=== PATIENT | male | born 1960 | race Caucasian/White ===

== ENCOUNTER → 2021-07-27 08:44 | Outpatient (BNVA) | payer OTHER, SELFPAY | PROVIDERS: PCP Nurse Practitioner Family; Referring Provider Nurse Practitioner Family; Visit Provider Surgery | DX: Z13.89 Encounter for screening for other disorder (principal) ==

== ENCOUNTER 2021-07-31 11:08 | Outpatient (REF) | payer OTHER, SELFPAY ==
[2021-07-31 14:02] LABS: Hematocrit 46.3 % (42.0-52.0); Hemoglobin 15.1 g/dl (14.0-18.0); Mean Corpuscular HGB Conc 32.6 g/dl (31.0-36.0); Mean Corpuscular Hemoglobin 31.1 pg (27.0-33.0); Mean Corpuscular Volume 95.5 fL (80.0-98.0); Mean Platelet Volume 9.3 fL (9.4-12.4); Platelet Count 153 X10*3/uL (160-400); Red Blood Count 4.85 X10*6/uL (4.60-5.80); Red Cell Distribution Width 13.3 % (11.0-16.0); White Blood Count 4.9 X10*3/uL (4.8-10.8)
[2021-07-31 14:08] LABS: INTERNATIONAL NORM RATIO 1.1 (0.9-1.1); Prothrombin Time 12.5 SEC (9.9-13.0)
[2021-07-31 14:11] LABS: Alanine Aminotransferase 17 U/L (0-40); Albumin Level 4.2 g/dL (3.5-5.0); Alkaline Phosphatase 55 U/L (39-117); Anion Gap 12 (12-20); Aspartate Amino Transferase 15 U/L (5-37); Bilirubin Total 1.5 mg/dL (0.0-1.0); Blood Urea Nitrogen 16 mg/dL (9-16); Calcium 9.7 mg/dL (8.4-10.2); Carbon Dioxide 26 mmol/L (22-29); Chloride 106 mmol/L (96-108); Cholesterol 246 mg/dL; Estimated Glomerular Filt Rate > 60; Glucose Fasting 95 mg/dL (60-99); HDL Cholesterol 48 mg/dL; LDL Cholesterol Calculated 179 mg/dl; Partial Thromboplastin Time 33.2 SEC (24.1-38.0); Potassium 4.2 mmol/L (3.3-5.1); Sodium 140 mmol/L (135-145); Total Protein 7.1 g/dL (6.5-8.0); Triglycerides 96 mg/dL
[2021-07-31 14:31] LABS: Prostate Specific Antigen Scr 0.69 ng/mL (<0.05-4.0)
== END 2021-07-31 11:09 | disposition home or self-care (01) ==
LOC: HO.HMGCLDS 11:08
PROVIDERS: PCP Nurse Practitioner Family; Visit Provider Nurse Practitioner Family
DX: Z01.818 Encounter for other preprocedural examination (principal); K40.90 Unilateral inguinal hernia, without obstruction or gangrene, not specified as recurrent; E78.00 Pure hypercholesterolemia, unspecified; Z76.89 Persons encountering health services in other specified circumstances; Z12.5 Encounter for screening for malignant neoplasm of prostate
CPT/HCPCS: 36415; 80053; 80061; 84153; 85027; 85610; 85730

== ENCOUNTER 2021-08-02 08:31 | Day surgery (SDC) | payer OTHER, SELFPAY ==
--- NOTE | 2021-08-01 09:50 | HO.ANESPROP2 ---
Documented by User: Bianca Matias NP 08/01/21 09:54 HPI - Anesthesia Eval Consult details Narrative: 61yo M for Hernia Repair Inguinal Laparoscopic with mesh, Hernia Repair Umbilical Laparoscopic PCP cleared pending labs (done and WNL) and EKG (pending) PMFSH Active Problems Active Problems: All Active Problems (Updated 07/20/21 @ 13:35 by NAHEED Platt-C) Umbilical hernia (Acute) Pre-operative clearance (Acute) Left inguinal hernia (Acute) Encounter to establish care (Acute) Surgical History Surgical History No pertinent past surgical history Social History Social History Housing: House Alcohol intake: never Patient Tobacco Use Status: Never used Tobacco e-Cigarette/Vaping Use: Never Used Second Hand Smoke Exposure: No Use of substances other than those prescribed or required for medical reasons: No Are you DNR?: No Advance Directives: No Advance Directives Information Provided: Yes Advance Directives on File: No service: No Current occupational status: employed Current occupation: self employed Cognitive needs: No Hearing needs: No Vision needs: Yes (Glasses) Meds Allergies Allergy/AdvReac Type Severity Reaction Status Date / Time No Known Allergies Allergy Verified 07/27/21 09:02 Home Medications Medication Instructions Recorded Confirmed Last Taken Type No Known Home Meds 07/20/21 07/27/21 Unknown History Exam Exam Date and Time: August 01, 2021 0950 Pertinent Lab Results Pertinent Lab Results: Laboratory Tests 07/31/21 07/31/21 11:15 11:15 WBC 4.9 Hgb 15.1 Hct 46.3 Plt Count 153 L Sodium 140 Potassium 4.2 Chloride 106 Carbon Dioxide 26 BUN 16 Creatinine 1.16 Assessment and Plan Assessment Anesthesia Assessment: Chart Reviewed Documented by User: Lata Power MD 08/02/21 09:29 PMFSH Past Medical History Functional capacity: independent ambulation Family History Family history of problems with anesthesia: No Surgical History Surgical History No pertinent past surgical history History of Problems with Anesthesia: No Social History Social History Housing: House Alcohol intake: never Patient Tobacco Use Status: Never used Tobacco e-Cigarette/Vaping Use: Never Used Second Hand Smoke Exposure: No Use of substances other than those prescribed or required for medical reasons: No Are you DNR?: No Advance Directives: No Advance Directives Information Provided: Yes Advance Directives on File: No service: No Current occupational status: employed Current occupation: self employed Cognitive needs: No Hearing needs: No Vision needs: Yes (Glasses) Meds Allergies Allergy/AdvReac Type Severity Reaction Status Date / Time No Known Allergies Allergy Verified 07/27/21 09:02 Home Medications Medication Instructions Recorded Confirmed Last Taken Type No Known Home Meds 07/20/21 07/27/21 Unknown History Exam Airway Mallampati Class: II TM Dist: >3cm Neck ROM: Full Heart: RRR Lungs: CTA Assessment and Plan Assessment Anesthesia Assessment: Anesthesia Plan Discussed Final Anesthetic Review Family History of Problems with Anesthesia: No History of Problems with Anesthesia: No ASA Class: II Final Preanesthetic Review: No Changes in Pt Med Stat, Meds/Allgs Chart Reviewed, Consent Obtained/Reviewed and Anes Risks/Benef Reviewed Patient Risk: Low Procedure Risk: Low Anesthetic Plan Anesthetic Plan: GA Disposition: Standard PACU
[2021-08-02] VITALS (11 sets, daily range): BP systolic 110–139; BP diastolic 55–82; PULSE 63–87; RESP 16–18; TEMP 36.1–36.6; O2SAT 96–100; BMI 26.6
--- NOTE | 2021-08-02 | ECG_ITS ---
Test Reason : pre op Blood Pressure : / mmHG Vent. Rate : 060 BPM Atrial Rate : 060 BPM P-R Int : 182 ms QRS Dur : 082 ms QT Int : 388 ms P-R-T Axes : 014 -15 -03 degrees QTc Int : 388 ms Normal sinus rhythm Normal ECG When compared with ECG of 20-SEP-2011 04:51, No significant change was found Referred By: Bianac Matias Electronically Signed By:POONAM TEMPLETON MD
[2021-08-02] MEDS: Lactated Ringers 1,000 ML 100 ML IVCONT (09:30)
--- NOTE | 2021-08-02 10:31 | MHC.SHP ---
Pre-Procedural Eval Section A Date of Service: 08/02/21 The patient is an INPATIENT: No Changes since office visit: Yes Patient answered all questions; No Cold of Flu in the past 2 weeks, No New Medical Problems and No Changes in Medication The History & Physical has been completed within 30 days and I have reviewed it.: Yes Section B Chief Complaint: umbilical and inguinal hernia w/o obstruction Allergies: Allergies Allergy/AdvReac Type Severity Reaction Status Date / Time No Known Allergies Allergy Verified 07/27/21 09:02 Plan Diagnosis/Plan: Unchanged I have reviewed the history and physical and performed a pertinent physical examination on my patient. No changes have occurred unless specified.
--- NOTE | 2021-08-02 12:30 | W.PM.OPN ---
Operative Note Operative Note Date of Service: 08/02/21 Narrative: Preoperative diagnosis: left inguinal hernia, umbilical hernia Postoperative diagnosis: same Procedure: laparoscopic repair of left inguinal hernia with mesh, umbilical hernia repair Surgeon: Rob Oliva MD Wood Boatbuilder Apprentice: Huong Gonsalez PA-C Anesthesia: general endotracheal Indications for procedure: 61-year-old male presenting with a palpable mass in the left groin and umbilicus which increases with lifting and straining. On examination patient has a reducible left inguinal hernia and small umbilical hernia. Patient presents today for laparoscopic repair of a left inguinal hernia and repair of the umbilical hernia. Operative findings: Indirect left inguinal hernia, small umbilical hernia Specimen: none Estimated blood loss: 2 mL Complications: none Procedure details: patient was brought to the OR and placed in a supine position. After administering general anesthesia patient's abdomen was prepped with ChloraPrep and draped in a sterile fashion. A surgical time-out was called and the consent confirmed. Patient received preoperative antibiotics and Venodyne boots were in place. Local anesthesia consisting of Sensorcaine 0.5% was infiltrated to the left of the umbilicus carried out through subcutaneous tissue up to the external oblique aponeurosis. This was then incised with a scalpel. A retro rectus muscle section was then performed using S retractors. The dilating balloon was then inserted below the rectus muscle into the preperitoneal space just above the pubic tubercle. This was then inflated with 15 pumps and held in place for 30 seconds. The dilating balloon was then removed and the structural balloon placed. The add preperitoneal space was then insufflated to a pressure of 15 mmHg with CO2. The patient was placed in a Trendelenburg position rotated to the left. Blunt dissection was then used to define the pubic tubercle medially annual laterally towards the direct space and then laterally blunt dissection was used to define the lateral space. Peritoneum was dissected down and an indirect hernia identified. Lipoma of the cord Was removed. No direct hernia could be identified. the indirect sac was then gradually dissected free and brought down into the pre peritoneal space. The remainder of the cord structures were further defined and preserved. A large 3DMax Light mesh was then obtained. This was inserted into the preperitoneal space and deployed. The mesh was then secured at the pubic tubercle at the midline and along the inferior surface of the rectus muscle superiorly. The remainder of the mesh was deployed laterally bring the indirect space and below the peritoneum. CO2 was then evacuated and the mesh found In the mesh found to remain and adequate position. Attention was then directed to the umbilical hernia. The periumbilical incision was increased in size and dissection around the umbilical skin performed using a hemostat. Electrocautery was then used to lift the umbilical skin off the abdominal wall. Two hernias were identified. The upper umbilical hernia contained preperitoneal which was dissected free from the surrounding fascia and excised. This was sent to pathologyas hernia sac. Fascial edges were then cleaned and reapproximated using a [id number] 1 Tycron suture. The 2nd opening measures only 2 mm in diameter. Was closed also using a [id number] 1 Tycron suture. The anterior rectus fascial opening was then reapproximated using a running 0 Polysorb suture. The umbilical skin was reattached to the midline fascia using a 3-0 Polysorb suture. Dermis was reapproximated using interrupted 3-0 Polysorb sutures. Skin was then closed using a running subcuticular 4-0 Polysorb suture. Trocar sites were also closed using interrupted 4-0 Polysorb sutures. Steri-Strips, 2 x 2 gauze and Tegaderm were then applied. The patient tolerated the procedure well. Sponge, instrument, and needle counts were reported as correct. The patient was transferred to PACU in stable condition.
[2021-08-02] MEDS: oxyCODONE HCl Immed Release 5 MG TABLET PO (13:06)
[2021-08-02] MEDS: ondansetron HCL 4 MG/2 ML VIAL IVPUSH (13:54)
--- NOTE | 2021-08-03 07:28 | HO.POSTANES ---
Post Anesthesia Evaluation Post Anesthesia Evaluation Anesthesia: General Endotracheal-GETA and General Mental Status: Awake Pain Control: Satisfactory Nausea/Vomiting: None Hydration: Adequate Anesthesia-Related Issues: No Anes. Related Issues
== END 2021-08-02 15:15 | disposition home or self-care (01) ==
PROVIDERS: PCP Nurse Practitioner Family; Visit Provider Surgery
PROC: (CPT 49650; principal; 2021-08-02 10:20)
PROC: 0WQF4ZZ Repair Abdominal Wall, Percutaneous Endoscopic Approach (ICD-10-PCS; CPT 49650; 2021-08-02 10:20)
DX: K42.9 Umbilical hernia without obstruction or gangrene (principal); K40.90 Unilateral inguinal hernia, without obstruction or gangrene, not specified as recurrent; D17.6 Benign lipomatous neoplasm of spermatic cord
CPT/HCPCS: 49650; 49652; 88302; 93005; C1727; C1781; J0690; J1100; J1885; J2250; J2405; J3010

== ENCOUNTER 2023-09-03 10:51 | Outpatient (AMB) | payer OTHER, SELFPAY ==
--- NOTE | 2023-09-03 10:56 | A.OFFVIS_ITS ---
Vital Signs 3 09/03/23 11:00 Height 5 ft 9 in Weight 177 lb 4 oz BMI 26.2 BP 112/62 Blood Pressure Location Lt brachial Position Sitting Pulse 61 Intake Visit Reasons: right sided hernia ? Intake Note: Patient is seen in office for evaluation and treatment of a right side hernia. Pt c/o: admits to lump on the right groin for a couple of months, has increase in size, admits to pain and discomfort when belt is on, denies nausea, vomit, diarrhea, constipation, no prior imaging Mentally Impaired Teacher Required: No Accompanied by: Self / Same As Patient Allergies No Known Allergies Allergy (Verified 09/03/23 11:02) Medication List - Last Reconciled 09/03/23 by Rob Oliva MD No Known Home Meds HPI Comments Details: 63-year-old male patient presenting with a previous history of left inguinal hernia previously repaired on 08/02/2021, now presenting with a new right inguinal hernia which he feels is increased in size and is causing some discomfort. For the last month he has been wearing a hernia truss which does seem to help with the discomfort. He denies any nausea, vomiting, fever or chills. He is requesting repair of this new right inguinal hernia. [facility] Surgical History Hx of left inguinal hernia repair Social History Housing: House Alcohol intake: never Patient Tobacco Use Status: Never used Tobacco e-Cigarette/Vaping Use: Never Used Second Hand Smoke Exposure: No service: No Current occupational status: employed Current occupation: self employed Cognitive needs: No Hearing needs: No Vision needs: Yes (Glasses) Review of Systems Const Denies chills, Denies fever(s), Denies headache(s) and Denies poor appetite ENT Denies dizziness and Denies headache(s) Card Denies chest pain, Denies rapid heart rate, Denies palpitations and Denies slow heart rate Resp Denies chest congestion, Denies cough, Denies pain on inspiration and Denies wheezing GI Denies abdominal pain, Denies bloating, Denies change in stool character, Denies constipation, Denies diarrhea, Denies nausea, Denies vomiting and Denies hematemesis Musc Denies back pain, Denies arthralgias, Denies joint swelling and Denies numbness Skin/Breast Denies change in pigmentation, Denies erythema and Denies rash Neuro Denies dizziness, Denies headache(s) and Denies numbness Psych Denies anxiety and Denies depression Endo Denies palpitations Khanh/Lymph Denies easy bleeding, Denies easy bruising and Denies lymphadenopathy Aller/Immun Denies wheezing Physical Exam Vital Signs: Last Vital Signs Pulse 61 09/03/23 11:00 BP 112/62 09/03/23 11:00 BMI result Body Mass Index 26.2 Const General: cooperative, comfortable and well developed Nutritional Appearance: well nourished Orientation/consciousness: patient oriented x3 Eyes Sclerae: sclerae normal EOM: EOMs intact bilaterally Neck Neck: Yes normal visual inspection Resp Effort & Inspection: normal respiratory effort, no cough, no respiratory distress and no stridor Cardio Jugular venous distension: no JVD GI Other: Well-healed incision in the left groin with no evidence of recurrent hernia. Right groin with a easily identified right inguinal hernia which increases with Valsalva maneuvers but reduces with light pressure. There is no tenderness to palpation. Inspection: Yes normal to inspection Palpation (GI): Soft to palpation, nontender, no guarding and not rigid Abdomen image: 2 1. Site of right inguinal hernia, reducible Skin General skin exam: dry skin Rashes: no rashes Neuro General: patient oriented x3 and no focal motor deficits Extrem General: Yes full ROM and Yes no clubbing, cyanosis or edema Psych Appearance: grossly normal Assessment & Plan Assessment & Plan (1) Reducible right inguinal hernia: Code(s): K40.90 - Unilateral inguinal hernia, without obstruction or gangrene, not specified as recurrent Category: Medical Plan 63-year-old male patient with a previous history of a left inguinal hernia repaired in 2021 now presenting with a right inguinal hernia which is become symptomatic. On examination he has a reducible right inguinal hernia which increases in size with Valsalva maneuvers. He is options include continuing to wear the truss for symptomatic relief verses repair of the right inguinal hernia with mesh. After discussion of the procedure, risks, and alternatives, he consents to the repair of right inguinal hernia with mesh. This will be scheduled as a short-stay surgery at his earliest convenience.
[2023-09-03 11:00] VITALS: BP 112/62; PULSE 61; BMI 26.2
== END 2023-09-03 11:05 | disposition home or self-care (01) ==
PROVIDERS: PCP Internal Medicine; Visit Provider Surgery
DX: K40.90 Unilateral inguinal hernia, without obstruction or gangrene, not specified as recurrent (principal)
CPT/HCPCS: 99214

== ENCOUNTER → 2023-09-03 10:51 | Outpatient (BNVA) | payer OTHER, SELFPAY | PROVIDERS: PCP Internal Medicine; Visit Provider Surgery | DX: K40.90 Unilateral inguinal hernia, without obstruction or gangrene, not specified as recurrent (principal) | CPT/HCPCS: 99212 ==

== ENCOUNTER 2023-09-23 07:22 | Day surgery (SDC) | payer OTHER, SELFPAY ==
[2023-09-12 10:09] VITALS: BMI 26.1
--- NOTE | 2023-09-19 15:09 | HO.ANESPROP2 ---
Documented by User: Bianca Matias NP 09/19/23 15:11 HPI - Anesthesia Eval Consult details Narrative: 63yo M for Right Hernia Inguinal Reducible with mesh s/p hernia repair 2021 with GA-ETT 7.5 [facility] Active Problems Active Problems: All Active Problems Reducible right inguinal hernia (Acute) Umbilical hernia (Acute) Pre-operative clearance (Acute) Left inguinal hernia (Acute) Encounter to establish care (Acute) Family History Family history of problems with anesthesia: No Surgical History Surgical History Hx of left inguinal hernia repair History of Problems with Anesthesia: No Social History Social History Housing: House Alcohol intake: never Patient Tobacco Use Status: Former Tobacco user e-Cigarette/Vaping Use: Never Used Second Hand Smoke Exposure: No service: No Current occupational status: employed Current occupation: self employed Cognitive needs: No Hearing needs: No Vision needs: Yes (Glasses) Meds Allergies Allergy/AdvReac Type Severity Reaction Status Date / Time No Known Allergies Allergy Verified 09/03/23 11:02 Exam Height,Weight and Vital Signs: Height 5 ft 9 in Weight 80.286 kg Assessment and Plan Assessment Anesthesia Assessment: Chart Reviewed Final Anesthetic Review Family History of Problems with Anesthesia: No History of Problems with Anesthesia: No Documented by User: Ambreen Bonilla MD 09/23/23 11:01 HPI - Anesthesia Eval Consult details Narrative: 63yo M for Right Hernia Inguinal Reducible with mesh s/p hernia repair 2021 with GA-ETT 7.5 (Laparoscopic LIH and umbilical hernia repair) [facility] Family History Family history of problems with anesthesia: No Surgical History Surgical History Hx of left inguinal hernia repair History of Problems with Anesthesia: No Social History Social History Housing: House Alcohol intake: never Patient Tobacco Use Status: Former Tobacco user e-Cigarette/Vaping Use: Never Used Second Hand Smoke Exposure: No service: No Current occupational status: employed Current occupation: self employed Cognitive needs: No Hearing needs: No Vision needs: Yes (Glasses) Meds Allergies Allergy/AdvReac Type Severity Reaction Status Date / Time No Known Allergies Allergy Verified 09/03/23 11:02 Exam Height,Weight and Vital Signs: Height 5 ft 9 in Weight 80.286 kg Vital Signs Temp Pulse Resp BP Pulse Ox O2 Del Method 09/23/23 09:01 97.2 F 51 18 114/72 96 Room Air Airway Mallampati Class: II TM Dist: >3cm Neck ROM: Full Loose/Missing/Broken Teeth: No (Denies broken, loose, missing teeth) Heart: RRR Lungs: CTAB Assessment and Plan Assessment Anesthesia Assessment: Anesthesia Plan Discussed and Chart Reviewed Final Anesthetic Review Family History of Problems with Anesthesia: No History of Problems with Anesthesia: No NPO: Yes ASA Class: I Final Preanesthetic Review: No Changes in Pt Med Stat, Meds/Allgs Chart Reviewed, Consent Obtained/Reviewed and Anes Risks/Benef Reviewed Patient Risk: Low Procedure Risk: Low Assessment/Block/Sedation in SS: Assess/Block/Sedation-SS Anesthetic Plan Anesthetic Plan: GA Disposition: Standard PACU
[2023-09-23] VITALS (7 sets, daily range): BP systolic 91–125; BP diastolic 57–79; PULSE 51–70; RESP 12–18; TEMP 36.2–36.6; O2SAT 96–99
[2023-09-23] MEDS: Lactated Ringers 1,000 ML 100 ML IVCONT (09:07)
--- NOTE | 2023-09-23 09:51 | MHC.SHP ---
Pre-Procedural Eval Section A - 24 Hr Update-Section A only Date of Service: 09/23/23 The patient is an INPATIENT: No Changes since office visit: Yes Patient answered all questions; No Cold of Flu in the past 2 weeks, No New Medical Problems and No Changes in Medication The patient has been examined within 24 hours of the surgical procedure. The History & Physical has been completed within 30 days and I have reviewed it.: Yes Section B - Complete if H&P > 30 days Chief Complaint: Unilateral inguinal hernia, without obstruction Allergies: Allergies Allergy/AdvReac Type Severity Reaction Status Date / Time No Known Allergies Allergy Verified 09/03/23 11:02 Plan Diagnosis/Plan: Unchanged I have reviewed the history and physical and performed a pertinent physical examination on my patient. No changes have occurred unless specified. Time Spent With Patient Time: Total time managing care of this patient today ____ minutes.
--- NOTE | 2023-09-23 10:27 | P.OP_ITS ---
Operative Note Operative Note Date of Service: 09/23/23 Narrative: Preoperative diagnosis: Right inguinal hernia, reducible Postoperative diagnosis:same Procedure:Repair of reducible right inguinal hernia with mesh Surgeon: Rob Oliva MD Muffler Installer: Huong Gonsalez PA-C, JONATHAN Carmona Anesthesia: General LMA Indications for procedure: 63-year-old male patient with a previous history of a left inguinal hernia repair now presenting for evaluation of a lump in the rig ht groin. He feels this causing increased discomfort is requesting repair of a right inguinal hernia. On examination he does indeed have a lump in the right groin which increases in size with Valsalva maneuvers and easily reduces with light pressure. Operative findings: Indirect reducible right inguinal hernia with sliding component Specimen: Hernia sac right Estimated blood loss: Less than 2 mL Complications: None Procedure details: Patient was brought to the OR and placed in a supine position. After administering general anesthesia the patient's abdomen was prepped with ChloraPrep and draped in a sterile fashion. A surgical time-out was called the consent confirmed. Patient received preoperative antibiotics and Venodyne boots were in place. Local anesthesia consisting of 0.5% bupivacaine was then injected over the right inguinal ligament. A small incision was then made over the ligament in the skin and carried out through subcutaneous tissue, past Miri's fascia and up to the external oblique aponeurosis. Additional local was infiltrated below the external oblique aponeurosis. This was then incised with a scalpel and widened with the Metzenbaum scissors. Spermatic cord was then dissected free from the surrounding inguinal canal and retracted using a [place] drain. The floor of the inguinal canal was found to be intact without evidence of a direct hernia. Fibers of the cremaster muscle were then and a indirect sac identified. This was dissected down to the internal ring. The sac was entered and a sliding component identified. The portion of the hernia sac above the sliding component was ligated and excised. This was sent as specimen labeled hernia sac. The sac was then reduced into the abdominal cavity. A preperitoneal space was then created through the internal ring using an open Ray-Licha sponge. A large PHS mesh was then obtained. The circular underlay was then deployed within the preperitoneal space at the internal ring. The overlay of the mesh was then secured to the pubic tubercle, conjoined tendon, and shelving edge of the inguinal ligament using a 0 Polysorb suture. A slit was made in the mesh at the internal ring and the mesh wrapped around the spermatic cord. This was secured to the shelving edge using the 0 Polysorb suture. The remaining mesh was placed laterally below the external oblique aponeurosis. The internal ring was tight enough to allow only the passage of the tip of the index finger. Wounds were then irrigated with saline solution and suctioned dry. External oblique aponeurosis was reapproximated using a running 2-0 Polysorb suture. 8 mL of Zenrelef was then infiltrated below the external oblique aponeurosis. Miri's fascia and dermis were then reapproximated using interrupted 3-0 Polysorb sutures. Skin was closed using a running subcuticular 4-0 Polysorb suture. Steri-Strips, 2 x 2 gauze and Tegaderm were then applied. The patient tolerated the procedure well. Sponge, instrument, and needle counts were reported as correct. The patient was transferred to PACU in stable condition.
== END 2023-09-23 12:52 | disposition home or self-care (01) ==
PROVIDERS: Visit Provider Surgery
PROC: (CPT 49525; principal; 2023-09-23 10:30)
DX: K40.90 Unilateral inguinal hernia, without obstruction or gangrene, not specified as recurrent (principal); Z98.890 Other specified postprocedural states
CPT/HCPCS: 49525; 88302; C1781; C9088; J0131; J0690; J1100; J1596; J1885; J2405; J2704; J2795; J3010

== ENCOUNTER → 2023-09-23 07:22 | Outpatient (BNV) | payer OTHER, SELFPAY | PROVIDERS: Visit Provider Surgery | DX: K40.90 Unilateral inguinal hernia, without obstruction or gangrene, not specified as recurrent (principal) | CPT/HCPCS: 49505 ==

== ENCOUNTER 2023-10-02 23:43 | Emergency (ER) | payer OTHER, SELFPAY ==
[2023-10-02 23:55] VITALS: BP 109/83; PULSE 98; RESP 16; TEMP 37.3; O2SAT 95; BMI 26.8
--- NOTE | 2023-10-03 00:48 | MHC.EDTECH ---
PATIENT BLOOD DRAWN AND SENT TO LAB ,PATIENT SAID HE NOT ABLE TO GIVE URINE SAMPLE AT THIS TIME .
[2023-10-03 00:49] LABS: Basophils Percent Auto 0.3 % (0-2); Eosinophils Absolute Auto 0.1 X10*3/uL (0.0-0.4); Hematocrit 43.2 % (42.0-52.0); Hemoglobin 15.3 g/dl (14.0-18.0); Imm Gran Abs Auto 0.02 X10*3/uL (0.00-0.03); Imm Gran Pct Auto 0.2 % (0.0-0.4); Lymphocytes Absolute Auto 1.4 X10*3/uL (1.2-4.9); Lymphocytes Percent Auto 13.9 % (20-40); MANUAL DIFF FLAG NO; Mean Corpuscular HGB Conc 35.4 g/dl (31.0-36.0); Mean Corpuscular Hemoglobin 30.5 pg (27.0-33.0); Mean Corpuscular Volume 86.1 fL (80.0-98.0); Mean Platelet Volume 8.9 fL (9.4-12.4); Monocytes Absolute Auto 0.9 X10*3/uL (0.1-1.2); Monocytes Percent Auto 8.5 % (2-11); Neutrophils Absolute Auto 7.7 x10*3/uL (2.0-8.3); Neutrophils Percent Auto 76.1 % (45-73); Platelet Count 222 X10*3/uL (160-400); Red Blood Count 5.02 X10*6/uL (4.60-5.80); Red Cell Distribution Width 12.9 % (11.0-16.0); White Blood Count 10.1 X10*3/uL (4.8-10.8)
[2023-10-03 01:03] LABS: Anion Gap 13 (12-20); Blood Urea Nitrogen 15 mg/dL (9-16); Calcium 9.7 mg/dL (8.4-10.2); Carbon Dioxide 26 mmol/L (22-29); Chloride 104 mmol/L (96-108); Creatinine Clr Calc Pharmacy 70.3; Estimated Glomerular Filt Rate > 60; Glucose Random 143 mg/dL (60-115); Potassium 3.9 mmol/L (3.3-5.1); Sodium 139 mmol/L (135-145)
[2023-10-03 03:19] VITALS: BP 131/66; PULSE 86; RESP 17; O2SAT 97
--- NOTE | 2023-10-03 03:43 | ED_ITS ---
HPI - Male Genitourinary General Chief complaint: Urogenital-Male Stated complaint: loose stools Time Seen by Provider: 10/03/23 03:43 Source: patient Mode of arrival: ambulatory Limitations: no limitations History of Present Illness HPI Narrative: Patient is postop right inguinal surgery on 09/22 since then been feeling constipated side more bowels but still fell stool stuck in his rectum no history of constipation in the past not on any narcotics no abdominal pain no nausea no vomiting Related Data Previous Rx's ?Medication ?Instructions ?Recorded oxycodone 5 mg tablet 5 mg PO Q6H PRN pain (scale score 09/23/23 7-10) #15 tabs Allergies Allergy/AdvReac Type Severity Reaction Status Date / Time No Known Allergies Allergy Verified 10/03/23 00:01 Review of Systems 2 Review of Systems: Yes all other systems are reviewed and are negative PMFSH Past Medical History Surgical History H/O right inguinal hernia repair (09/23/23) Hx of left inguinal hernia repair Social History Social History Housing: House Alcohol intake: never Patient Tobacco Use Status: Former Tobacco user Smoked in Last 30 Days: Yes e-Cigarette/Vaping Use: Never Used Second Hand Smoke Exposure: No Use of substances other than those prescribed or required for medical reasons: No Advance Directives: No Advance Directives Information Provided: No Do you have a plan to hurt others: No Plan service: No Current occupational status: employed Current occupation: self employed Cognitive needs: No Hearing needs: No Vision needs: Yes (Glasses) Physical Exam 2 Vital Signs: Vital Signs: Last Vital Signs Temp 99.1 F 10/02/23 23:55 Pulse 86 10/03/23 03:19 Resp 17 10/03/23 03:19 BP 131/66 10/03/23 03:19 Pulse Ox 97 10/03/23 03:19 O2 Del Method Room Air 10/03/23 03:19 BMI result Body Mass Index 26.8 Appearance: Alert. Oriented X3. No acute distress. ENT: Pharynx normal. Oral Mucosa moist Neck: Normal inspection. Neck supple. CVS: Normal heart rate and rhythm. Pulses normal. Respiratory: No respiratory distress. Equal air entry bilateral, Abdomen: Soft and nontender. Bowel sounds are present, no mass palpable, no CVA tenderness rectum: Soft stool in the rectum Skin: Skin warm and dry. Normal skin color. Normal skin turgor. Extremities: No lower extremity edema. No calf tenderness Neuro: Oriented X 3. Medical Decision Making Medical Decision Making [facility] Narrative: Patient with constipation postop manual disimpaction done patient had a good bowel movement feeling much better will discharge patient home Lab Data [facility] Lab Attestation statement: I reviewed the patient's lab results. 10/03/23 00:44 10/03/23 00:44 Labs: Lab Results 10/03/23 Range/Units 00:44 WBC 10.1 (4.8-10.8) X10*3/uL RBC 5.02 (4.60-5.80) X10*6/uL Hgb 15.3 (14.0-18.0) g/dl Hct 43.2 (42.0-52.0) % MCV 86.1 (80.0-98.0) fL MCH 30.5 (27.0-33.0) pg MCHC 35.4 (31.0-36.0) g/dl RDW 12.9 (11.0-16.0) % Plt Count 222 D (160-400) X10*3/uL MPV 8.9 L (9.4-12.4) fL Immature Gran % (Auto) 0.2 (0.0-0.4) % Neut % (Auto) 76.1 H (45-73) % Lymph % (Auto) 13.9 L (20-40) % Noble % (Auto) 8.5 (2-11) % Eos % (Auto) 1.0 (0-4) % Baso % (Auto) 0.3 (0-2) % Lymph # (Auto) 1.4 (1.2-4.9) X10*3/uL Noble # (Auto) 0.9 (0.1-1.2) X10*3/uL Eos # (Auto) 0.1 (0.0-0.4) X10*3/uL Baso # (Auto) 0.0 (0.0-0.2) X10*3/uL Abs Immat Gran (auto) 0.02 (0.00-0.03) X10*3/uL Absolute Neuts (auto) 7.7 (2.0-8.3) x10*3/uL Absolute Nucleated RBC 0.000 (0.0-0.012) X10*3/uL Nucleated RBC % (auto) 0.0 (0.0-0.2) /100WBC Sodium 139 (135-145) mmol/L Potassium 3.9 (3.3-5.1) mmol/L Chloride 104 (96-108) mmol/L Carbon Dioxide 26 (22-29) mmol/L Anion Gap 13 (12-20) BUN 15 (9-16) mg/dL Creatinine 1.04 (0.5-1.4) mg/dL Estim Creat Clear Calc 70.3 Estimated GFR > 60 Random Glucose 143 H (60-115) mg/dL Calcium 9.7 (8.4-10.2) mg/dL Discharge Plan Discharge Clinical Impression: Constipation Patient Disposition: Home, Self-Care Instructions: Constipation (ED) Additional Instructions: Drink plenty of fluid Stool softener as advised Prescriptions: No Action oxycodone 5 mg tablet 5 mg PO Q6H PRN (Reason: pain (scale score 7-10)) Qty: 15 0RF Rx Instructions: Partial Fill upon patient request. Print Language: Other
[2023-10-03 04:50] VITALS: BP 139/68; PULSE 87; RESP 16; TEMP 36.6; O2SAT 98
== END 2023-10-03 04:50 | disposition home or self-care (01) ==
PROVIDERS: Emergency Provider Internal Medicine
DX: K59.00 Constipation, unspecified (principal)
CPT/HCPCS: 36415; 80048; 85025; 99212; 99283; 99284

== ENCOUNTER 2023-10-03 09:01 | Outpatient (AMB) | payer OTHER, SELFPAY ==
--- NOTE | 2023-10-03 09:14 | MHC.OFFVIS ---
Vital Signs 10/03/23 09:16 Height 5 ft 8 in Weight 173 lb 6 oz BMI 26.4 BP 104/62 Blood Pressure Location Lt brachial Position Sitting Pulse 89 Intake Visit Reasons: s/p RIH w/mesh Intake Note: Patient is seen in office for post op assessment post right inguinal hernia repair. 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 He reports severe constipation postoperatively and subsequently was evaluated in the emergency department last evening. Disimpaction was performed and he reported a moderate size bowel movement. He continues to feel pressure in the rectum but does feel improved. He denies significant discomfort in the hernia site. ON LICENSE OF [facility] Surgical History H/O right inguinal hernia repair (09/23/23) Hx of left inguinal hernia repair Social History Housing: House Alcohol intake: never Patient Tobacco Use Status: Former Tobacco user e-Cigarette/Vaping Use: Never Used Second Hand Smoke Exposure: No service: No Current occupational status: employed Current occupation: self employed Cognitive needs: No Hearing needs: No Vision needs: Yes (Glasses) Physical Exam Vital Signs: Last Vital Signs Pulse 89 10/03/23 09:16 BP 104/62 10/03/23 09:16 BMI result Body Mass Index 26.4 Const General: no acute distress Resp Effort & Inspection: normal respiratory effort GI Other: Soft and nondistended, well-healed incision in the right groin without evidence of hernia recurrence or infection. Extrem Other: No edema Assessment & Plan Assessment & Plan (1) Constipation: Code(s): K59.00 - Constipation, unspecified Category: Medical (2) Reducible right inguinal hernia: Code(s): K40.90 - Unilateral inguinal hernia, without obstruction or gangrene, not specified as recurrent Category: Medical Plan 63-year-old male status post repair of right inguinal hernia with mesh 1 week ago. He tolerated the procedure well but did develop constipation postoperatively. I recommended Colace 100 mg p.o. daily. He should return in 1 month for follow-up examination. He should continue to avoid lifting greater than 10 lb until that time. He expressed understanding and agrees with the plan. Medications: New docusate sodium (Colace) 100 mg PO DAILY 30 caps 0RF K59.00 - Constipation, unspecified Coding Level of Care Code Global (39223) Diagnoses Constipation K59.00 Reducible right inguinal hernia K40.90
[2023-10-03 09:16] VITALS: BP 104/62; PULSE 89; BMI 26.4
== END 2023-10-03 09:23 | disposition home or self-care (01) ==
PROVIDERS: Visit Provider Surgery
DX: K59.00 Constipation, unspecified (principal); K40.90 Unilateral inguinal hernia, without obstruction or gangrene, not specified as recurrent
CPT/HCPCS: 99024

== ENCOUNTER 2023-11-05 08:51 | Outpatient (AMB) | payer OTHER, SELFPAY ==
--- NOTE | 2023-11-05 08:53 | A.OFFVIS_ITS ---
Intake Visit Reasons: 1 mth s/p RIH w/mesh Intake Note: Patient is seen in office for one month follow up visit, post right inguinal hernia repair. Pt c/o: no concerns. Reports incision healing well. Never took rx pain meds. Duct Cleaner Required: No Accompanied by: Self / Same As Patient Allergies No Known Allergies Allergy (Verified 11/05/23 08:56) HPI Comments Details: 63-year-old male patient status post repair of a right inguinal hernia with mesh. He returns today 1 month following repair performed on 09/23/2023. He reports no issues since his last appointment. He denies any pain, redness or discharge. He feels ready to return to normal activity. [facility] Surgical History H/O right inguinal hernia repair (09/23/23) Hx of left inguinal hernia repair Social History Housing: House Alcohol intake: never Patient Tobacco Use Status: Former Tobacco user e-Cigarette/Vaping Use: Never Used Second Hand Smoke Exposure: No service: No Current occupational status: employed Current occupation: self employed Cognitive needs: No Hearing needs: No Vision needs: Yes (Glasses) Physical Exam Const General: no acute distress Resp Effort & Inspection: normal respiratory effort GI Other: Soft and nondistended, well-healed incision in the right groin without evidence of hernia recurrence or infection. Remaining Steri-Strips were removed and the wounds found to be well healed. Extrem Other: No edema Assessment & Plan Assessment & Plan (1) Reducible right inguinal hernia: Code(s): K40.90 - Unilateral inguinal hernia, without obstruction or gangrene, not specified as recurrent Category: Medical Plan 63-year-old male patient status post repair of a right inguinal hernia with mesh 1 month ago. He tolerated the procedure well and her wounds are healing nicely. There is no evidence of hernia recurrence or wound infection. He may resume normal activity without restrictions and should follow up as needed. Coding Level of Care Code Global (92874) Diagnoses Reducible right inguinal hernia K40.90
== END 2023-11-05 08:57 | disposition home or self-care (01) ==
PROVIDERS: Visit Provider Surgery
DX: K40.90 Unilateral inguinal hernia, without obstruction or gangrene, not specified as recurrent (principal)
CPT/HCPCS: 99024

== ENCOUNTER → 2023-11-05 08:51 | Outpatient (BNVA) | payer OTHER, SELFPAY | PROVIDERS: Visit Provider Surgery | DX: K40.90 Unilateral inguinal hernia, without obstruction or gangrene, not specified as recurrent (principal) | CPT/HCPCS: 99212 ==